=== PATIENT | female | born 1965 | race African-American/Black ===

== ENCOUNTER 2016-10-18 09:41 | Emergency (ER) | payer OTHER ==
[2016-10-18 09:48] VITALS: BP 134/84; PULSE 110; TEMP 97.6; BMI 34.9
--- NOTE | 2016-10-18 11:10 | PDOC ---
History of Present Illness - General Chief Complaint: Cold Symptoms Stated Complaint: HEADACHE, COUGH Time Seen by Provider: 10/18/16 11:02 History Source: Patient Exam Limitations: No Limitations - History of Present Illness Initial Comments: 10/18/16 11:47 Patient is here with complaints of 2 weeks of cough, fevers and chills, generalized body aches, sore throat pain and runny nose. States had fevers and chills worse at the beginning of this week and is gradually getting better. Came to emergency department because states feels continued malaise and productive cough with yellow phlegm. Has used [id number] and old- fashioned treatments but has not sought medical attention until today. Timing/Duration: reports: changing over time, getting worse, intermittent Severity: reports: mild, moderate Associated Symptoms: reports: cough, fever/chills, headache, nasal congestion, nasal drainage Past History - Travel Traveled outside of the country in the last 30 days: No Close contact w/someone who was outside of country & ill: No - Past Medical History Allergies/Adverse Reactions: Allergies Allergy/AdvReac Type Severity Reaction Status Date / Time No Known Allergies Allergy Verified 10/18/16 09:45 Home Medications: Ambulatory Orders No Home Medications 0 dose .ROUTE UTDICT 11/13/12 Albuterol Sulfate [Proventil HFA Inhaler -] 1 - 2 inh PO QID #1 inhaler Azithromycin [Zithromax -] 250 mg PO UTDICT #6 tab 10/18/16 Other medical history: none - Psycho/Social/Smoking Cessation Hx Anxiety: No Suicidal Ideation: No Smoking Status: No Smoking History: Never smoked Have you smoked in the past 12 months: No Number of Cigarettes Smoked Daily: 0 Information on smoking cessation initiated: No Hx Alcohol Use: No Drug/Substance Use Hx: No Substance Use Type: None Respiratory Specific PMHX - Complaint Specific PMHX Bronchitis: No Pneumonia: No Review of Systems - Review of Systems Able to Perform ROS?: Yes Is the patient limited Ethiopian proficient: Yes Constitutional: Yes: Symptoms Reported HEENTM: Yes: See HPI. No: Symptoms Reported Respiratory: Yes: Symptoms reported, See HPI, Cough. No: Wheezing Cardiac (ROS): No: Symptoms Reported ABD/GI: No: Symptoms Reported Integumentary: Yes: Symptoms Reported, See HPI Neurological: No: Symptoms reported All Other Systems: Reviewed and Negative *Physical Exam - Vital Signs Last Vital Signs Temp Pulse Resp BP Pulse Ox 97.6 F 110 H 18 134/84 100 10/18/16 09:45 10/18/16 09:45 10/18/16 09:45 10/18/16 09:45 10/18/16 09:45 - Physical Exam General Appearance: Yes: Nourished, Appropriately Dressed, Apparent Distress, Mild Distress HEENT: positive: JAYCOB, TMs Normal, Pharynx Normal. negative: Normal ENT Inspection, Pharyngeal Erythema Neck: positive: Supple. negative: Tender Respiratory/Chest: positive: Lungs Clear (course but clear although airway breath sounds are diminished) Gastrointestinal/Abdominal: positive: Normal Bowel Sounds, Soft. 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 Probable resolving influenza however patient continues with fevers and productive cough. Will treat with Zithromax *DC/Admit/Observation/Transfer Diagnosis at time of Disposition: Bronchitis - Discharge Dispostion Disposition: HOME Condition at time of disposition: Stable Admit: No - Patient Instructions Printed Discharge Instructions: DI for Acute Bronchitis Additional Instructions: Rest, drink lots of fluids: Teas, water, soups, Pedialyte Saltwater gargles Steamy showers/seem to face break up mucus Avoid contact with others until fevers and cough resolved Lots of handwashing and good hygiene Continue [id number] medications for symptomatic relief Tylenol or Motrin for fever and pain Zithromax as directed Followup with private physician in one to 2 days as needed Return to emergency department for worsened symptoms, fevers, dehydration - Post Discharge Activity Work/School Note: Back to Work
== END 2016-10-18 12:14 | disposition home or self-care (01) ==
LOC: JERFT 09:41
DX: J20.9 Acute bronchitis, unspecified (principal)
CPT/HCPCS: 99281-25